=== PATIENT | male | born 1960 | race African-American/Black ===

== ENCOUNTER 2017-09-30 10:57 | Emergency (ER) | payer BC ==
[2017-09-30 11:03] VITALS: TEMP 98.5; BMI 23.8
--- NOTE | 2017-09-30 11:35 | PDOC ---
Attending Attestation - HPI HPI: 09/30/17 12:50 The patient is a 57 year old male with no pertinent past medical history who presents to the ED with complaints of frontal headache for the past 3-4 weeks. The patient also reports pain behind his eyes and blurred vision today which was new. Patient was seen yesterday by Dr. Villafana in his office where a CT was done and showed infarcts. Patient will be seeing Dr. Ruelas within upcoming weeks. Denies any fevers, chills, nausea, vomiting, diarrhea, cough, SOB, CP, urinary symptoms, numbness, tingling, LOC, or other focal neurological deficits. PCP: Dr. Villafana - Physicial Exam PE: 09/30/17 12:51 GENERAL: Awake, alert, and fully oriented, in no acute distress HEAD: No signs of trauma EYES: PERRLA, EOMI, sclera anicteric, conjunctiva clear ENT: Auricles normal inspection, hearing grossly normal, nares patent, oropharynx clear without exudates. Moist mucosa NECK: Normal ROM, supple, no lymphadenopathy, JVD, or masses LUNGS: Breath sounds equal, clear to auscultation bilaterally. No wheezes, and no crackles HEART: Regular rate and rhythm, normal S1 and S2, no murmurs, rubs or gallops ABDOMEN: Soft, nontender, normoactive bowel sounds. No guarding, no rebound. No masses EXTREMITIES: Normal range of motion, no edema. No clubbing or cyanosis. No cords, erythema, or tenderness NEUROLOGICAL: Cranial nerves II through XII grossly intact. NV intact. Normal finger to nose. Normal speech, normal gait SKIN: Warm, Dry, normal turgor, no rashes - Medical Decision Making 09/30/17 12:51 Documentation prepared by Courtney Mccoy, acting as medical record administrator for Skye Acosta DO. <Courtney Mccoy - Last Filed: 09/30/17 12:50> - Resident Resident Name: David Pandey - ED Attending Attestation I have performed the following: I have examined & evaluated the patient, The case was reviewed & discussed with the resident, I agree w/resident's findings & plan, Exceptions are as noted - Medical Decision Making 09/30/17 11:35 I, Dr. Skye Acosta DO, attest that this document has been prepared under my direction and personally reviewed by me in its entirety. I further attest, that it accurately reflects all work, treatment, procedures and medical decision -making performed by me. 09/30/17 12:48 57yo male with 3-4 weeks of robles -had outpt ct that showed infarcts per the patient and was told to see Dr. Ruelas -neuro intact -has intermittent episodes of paresthesias -pt hypertensive today upon arrival in the ED -will send labs, repeat head ct - pt does not have report or images -will monitor and reassess 09/30/17 15:[address] pt without acute cva -robles imprvoed -has appt for dr. ruelas for sunday <Skye Acosta - Last Filed: 09/30/17 15:21>
[2017-09-30] MEDS ORDERED: SODIUM CHLORIDE 0.9% 500 ML INFUS.BAG IV ONE (11:57)
[2017-09-30] MEDS ORDERED: ACETAMINOPHEN 1000 MG/100 ML VIAL (NON FORMULARY) IVPB ONE (11:57)
[2017-09-30] MEDS ORDERED: METOCLOPRAMIDE HCL INJECTION 10 MG/2 ML VIAL IVPUSH ONE (11:57)
--- NOTE | 2017-09-30 11:59 | PDOC ---
History of Present Illness - General Chief Complaint: Headache Stated Complaint: HEADACHE Time Seen by Provider: 09/30/17 11:26 History Source: Patient Exam Limitations: No Limitations - History of Present Illness Initial Comments: The patient is a 57M with no reported PMH who presents for evaluation of a headache that he reports has been waxing and waning for the last 3-4 weeks. The PINA is described as pressure across his forehead and behind his eyes. He states that his PINA will come on gradually, is not associated with any symptoms nor is it associated with any aura. He denies similar episodes prior to this time period. He was seen by his primary care provider and underwent a CT head last Sunday which he reported was significant for 'small strokes' and was given an outpatient referral to a neurologist for which he has an appointment Sunday. He states the his pain is currently well controlled. 09/30/17 13:36 Timing/Duration: reports: other (3-4 weeks wax/wane) Associated Symptoms: denies: loss of consciousness, nausea/vomiting, numbness in legs/feet, ringing in ears, slurred speech, tingling in legs/feet, trouble walking, vision changes Past History - Travel Traveled outside of the country in the last 30 days: No Close contact w/someone who was outside of country & ill: No - Past Medical History Allergies/Adverse Reactions: Allergies Allergy/AdvReac Type Severity Reaction Status Date / Time No Known Allergies Allergy Verified 09/30/17 11:02 Home Medications: Ambulatory Orders Silodosin [Rapaflo] 0 mg PO DAILY 09/30/17 Asthma: No Cancer: No Hx Myocardial Infarction: No CVA: No (tia) COPD: No DVT: No Diabetes: No GI Disorders: No Disorders: No Seizures: No - Suicide/Smoking/Psychosocial Hx Smoking History: Never smoked Neuro Specific PMHX - Complaint Specific PMHX Herniated Disk: No Laminectomy: No Migraine: No Neuropathy: No TIA: No Review of Systems - Review of Systems Cardiac (ROS): No: Chest Pain, Palpitations ABD/GI: No: Abdominal Distended, Nausea, Vomiting : No: Dysuria, Hematuria Integumentary: No: Pruritus, Rash Neurological: No: Numbness, Paresthesia, Seizure, Weakness, Unsteady Gait, Ataxia, Dizziness Psychiatric: Yes: Anxiety. No: Depression Endocrine: No: Intolerance to Cold, Intolerance to Heat Hematologic/Lymphatic: No: Easy Bruising *Physical Exam - Vital Signs Last Vital Signs Temp Pulse Resp BP Pulse Ox 98.5 F 99 H 18 158/110 99 09/30/17 10:59 09/30/17 10:59 09/30/17 10:59 09/30/17 10:59 09/30/17 10:59 - Physical Exam General Appearance: Yes: Nourished HEENT: positive: EOMI, CAMPBELL, Normal ENT Inspection, Normal Voice Neck: positive: Trachea midline, Supple. negative: Lymphadenopathy (R), Lymphadenopathy (L) Respiratory/Chest: positive: Lungs Clear, Normal Breath Sounds Cardiovascular: positive: Regular Rhythm, Regular Rate, S1, S2 Vascular Pulses: Femoral (R): 2+, Femoral (L): 2+, Carotid (R): 2+, Carotid (L) : 2+, Dorsalis-Pedis (R): 2+, Doralis-Pedis (L): 2+ Gastrointestinal/Abdominal: positive: Normal Bowel Sounds, Soft, Protuberent. negative: Distended, Guarding, Rebound Musculoskeletal: positive: Normal Inspection Extremity: positive: Normal Capillary Refill, Normal Inspection Integumentary: positive: Normal Color, Warm Neurologic: positive: lead miner II-XII NML intact, Fully Oriented, Alert ED Treatment Course - LABORATORY CBC & Chemistry Diagram: 09/30/17 13:20 09/30/17 13:32 Medical Decision Making - Medical Decision Making The patient is a 57M who presents for a frontal headache that has been waxing/ waning for the last 3-4 weeks. DDx: stroke, ICH, SAH, SDH, migraine, tension headache, hypertensive headache, meningitis, glaucoma Plan: Headache with HTN -Non-contrast head CT given patient reports history of recent abnormal head CT with associated headache -BMP, CBC, ECG, UA -1L NS bolus -Reglan 10mg IV once -Ofirmev 1000mg IV once Dispo: -Non-contrast CT head not significant for any acute pathology -Patient determined to be suitable for discharge, was given return precautions, and should follow up with his neurology appointment. The patient voiced understanding. 09/30/17 13:37 *DC/Admit/Observation/Transfer Diagnosis at time of Disposition: Headache - Discharge Dispostion Disposition: HOME Condition at time of disposition: Good Decision to Admit order: No - Referrals Referrals: Harry Villafana MD [Primary Care Provider] - Frank Dorman MD [Staff Physician] - - Patient Instructions Printed Discharge Instructions: DI for Hormonal and Tension Headaches Additional Instructions: You were seen today in the Emergency Department for headache. Your head CT scan was stable, without signs of acute injury. For your headache, you can take Ibuprofen, up to 800mg three times a day. Maintain your follow up with the Neurologist, Dr. Dorman on Sunday. Return to the Emergency Department if you develop worsening headaches, fever, or new symptoms associated with your headache. - Post Discharge Activity
[2017-09-30] MEDS ORDERED: METOCLOPRAMIDE HCL INJECTION 10 MG/2 ML VIAL ONE (12:46)
[2017-09-30] MEDS ORDERED: ACETAMINOPHEN INJECTION 100 ML IVPB ONE (12:46)
[2017-09-30 13:36] LABS: HEMOGLOBIN 15.7 GM/dL (11.7-16.9); MCH 29.8 pg (25.7-33.7); MCHC 34.1 g/dl (32.0-35.9); MEAN CELL VOLUME 87.4 fl (80-96); MEAN PLT VOLUME 8.8 fl (7.5-11.1); PLATELET COUNT 136 K/MM3 (134-434); RBC 5.26 M/mm3 (4.00-5.60); RDW 14.3 % (11.9-15.9); WHITE BLOOD COUNT 6.4 K/mm3 (4.0-10.0)
[2017-09-30 14:16] LABS: ANION GAP 5 (8-16); BLOOD UREA NITROGEN 11 mg/dL (7-18); CHLORIDE 108 mmol/L (98-107); CO2 30 mmol/L (21-32); CREATININE 1.1 mg/dL (0.7-1.3); GLUCOSE,RANDOM 77 mg/dL (74-106); POTASSIUM 4.3 mmol/L (3.5-5.1); SODIUM 143 mmol/L (136-145)
[2017-09-30 16:01] VITALS: BP 128/64; PULSE 71
== END 2017-09-30 16:01 | disposition home or self-care (01) ==
LOC: JER 10:57
PROC: 3E0337Z Introduction of Electrolytic and Water Balance Substance into Peripheral Vein, Percutaneous Approach (ICD-10-PCS; principal; 2017-09-30)
PROC: 3E033NZ Introduction of Analgesics, Hypnotics, Sedatives into Peripheral Vein, Percutaneous Approach (ICD-10-PCS; 2017-09-30)
PROC: 3E033GC Introduction of Other Therapeutic Substance into Peripheral Vein, Percutaneous Approach (ICD-10-PCS; 2017-09-30)
DX: I10 Essential (primary) hypertension (principal); R51 Headache
CPT/HCPCS: 36415; 70450-TC; 80048; 85027; 99284-25; J0131